=== PATIENT | female | born 1995 | race Caucasian/White ===

== ENCOUNTER 2019-07-24 18:34 | Emergency (ER) | payer OTHER ==
[~2019-07-24] VITALS: Ht 162.6 cm; Wt 54.5 kg
[2019-07-24 18:58] VITALS: TEMP 98.6
[2019-07-24] MEDS ORDERED: LEXAPRO 10MG10 MG PO (20:46)
[2019-07-24] MEDS ORDERED: FLEXERIL 1010 MG/TAB PO (22:02)
[2019-07-24 22:13] VITALS: BP 111/74; PULSE 74
== END 2019-07-24 22:15 | disposition home or self-care (01) ==
LOC: COL.ER 18:34
DX: S16.1XXA Strain of muscle, fascia and tendon at neck level, initial encounter (principal); F41.9 Anxiety disorder, unspecified; F32.9 Major depressive disorder, single episode, unspecified; Z88.8 Allergy status to other drugs, medicaments and biological substances; V43.52XA Car driver injured in collision with other type car in traffic accident, initial encounter
CPT/HCPCS: J1885; J2360